=== PATIENT | female | born 1960 | race Caucasian/White ===

== ENCOUNTER 2021-06-09 14:27 | Emergency (ER) | payer BC, MEDICARE ==
[2021-06-09 14:59] VITALS: BP 120/76; PULSE 75; RESP 20; TEMP 99.3
[2021-06-09] MEDS ORDERED: LIDOCAINE 5% PATCH TOPICAL STA (17:17)
[2021-06-09] MEDS ORDERED: KETOROLAC 30 MG/ML 1 ML VIAL IM STA (17:17)
[2021-06-09] MEDS ORDERED: DIPH,PERTUS(ACELL)TETVAC-LF 0.5 ML VIAL IM ONE (17:17)
--- NOTE | 2021-06-09 17:35 | XR ---
EXAMINATION TYPE: XR ribs LT w pa chest xray DATE OF EXAM: 06/09/2021 COMPARISON: NONE HISTORY: Pain TECHNIQUE: 5 views FINDINGS: Heart and mediastinum appear normal. There is poor inspiration. There is some mild linear d ensity left lung base. I see no displaced fracture. There is no pneumothorax. There is no definite pl eural effusion. IMPRESSION: There is some pleural reaction at the left lung base. No rib fracture seen. Normal heart.
--- NOTE | 2021-06-09 17:51 | ED ---
General Adult HPI - General Chief complaint: Fall Stated complaint: Fall/Head Lac Time Seen by Provider: 06/09/21 16:57 Source: patient Mode of arrival: ambulatory Limitations: no limitations - History of Present Illness Initial comments: 61-year-old female patient presents to the emergency department today for evaluation after experiencing a fall. She is reporting left-sided rib pain. States it hurts to move or take a deep breath. Patient states the fall occurred approximately 2 hours ago. States she did hit her head on the cement. Denies loss of consciousness. Denies any current headache, blurred vision, double vision, nausea, or vomiting. Denies numbness, tingling, weakness to her extremities. She states she did scrape her left knee. States she's ambulating without difficulty does not believe it is broken. She denies any hemoptysis or cough. Does not feel short of breath. Denies taking any medication for pain. She is unsure when her last tetanus vaccine was given. - Related Data Previous Rx's Medication Instructions Recorded Ibuprofen [Motrin] 600 mg PO Q8HR PRN #30 tab 06/09/21 Lidocaine 5% Patch [Lidoderm] 1 patch TOPICAL DAILY #30 patch 06/09/21 Allergies Allergy/AdvReac Type Severity Reaction Status Date / Time vancomycin Allergy Rash/Hives Verified 06/09/21 14:55 Review of Systems ROS Statement: Those systems with pertinent positive or pertinent negative responses have been documented in the HPI. ROS Other: All systems not noted in ROS Statement are negative. Past Medical History Past Medical History: Cancer History of Any Multi-Drug Resistant Organisms: None Reported Past Surgical History: Breast Surgery Past Psychological History: No Psychological Hx Reported Smoking Status: Never smoker Past Alcohol Use History: Occasional Past Drug Use History: None Reported General Exam Limitations: no limitations General appearance: alert, in no apparent distress, other (This is a well- developed, well-nourished adult female patient in no acute distress.) Head exam: Present: other (Mild soft tissue swelling and ecchymosis to the left frontal region) Eye exam: Present: normal appearance, PERRL, EOMI, nystagmus. Absent: scleral icterus, conjunctival injection, periorbital swelling ENT exam: Present: normal exam, normal oropharynx, mucous membranes moist Neck exam: Present: normal inspection, full ROM, other (Nontender, no step-off, no deformity to firm midline palpation of the posterior cervical spine. Full range of motion without pain or limitation.). Absent: tenderness, meningismus, lymphadenopathy Respiratory exam: Present: normal lung sounds bilaterally, other (Left lateral chest wall tenderness). Absent: respiratory distress, wheezes, rales, rhonchi, stridor Cardiovascular Exam: Present: regular rate, normal rhythm, normal heart sounds. Absent: systolic murmur, diastolic murmur, rubs, gallop, clicks GI/Abdominal exam: Present: soft, normal bowel sounds. Absent: distended, tenderness, guarding, rebound, rigid Extremities exam: Present: full ROM, normal capillary refill, other (There is abrasion noted to the left anterior knee. Patient noted to the palmar surface of the left hand. Full range of motion is intact. Skin is otherwise pink, warm, dry. Cap refill less than 3 seconds. Pedal posttibial pulses are 2+. Radial pulses 2+.). Absent: tenderness, pedal edema, joint swelling, calf tenderness Neurological exam: Present: alert, oriented X3, CN II-XII intact Psychiatric exam: Present: normal affect, normal mood Skin exam: Present: warm, dry, intact, normal color. Absent: rash Course Vital Signs 06/09/21 14:56 Temperature 99.3 F Pulse Rate 75 Respiratory 20 Rate Blood Pressure 120/76 O2 Sat by Pulse 97 Oximetry Medical Decision Making - Medical Decision Making 61-year-old female patient presented for evaluation after a fall today. Physical examination did reveal abrasion to the left knee, ecchymosis soft tissue swelling to the left frontal region of her head. She also is reporting left-sided rib pain. No skin normalities to the chest. X-ray of the left ribs with PA chest was obtained and was negative for any acute fractures. She does have breast implants due to reconstruction after mastectomy, this was ultrasound and showed no evidence of fluid collection and the margins of the implant appeared intact. She will be discharged to follow[facility]up [facility] or her breast surgeon for further evaluation. I did inform her that ultrasound is limited in evaluating the implant so follow up is important. Also discussed possibility of rib contusion versus occult rib fracture. She is given Lidoderm patch and ibuprofen. Educated regarding coughing and deep breathing exercises to prevent pneumonia. She is instructed to follow-up with h er primary care physician for recheck in 1-2 days. Return parameters were discussed in detail. She verbalizes understanding and agrees with this plan. My attending is Dr. Martinez. - Radiology Data Radiology results: report reviewed, image reviewed Views of the left ribs are obtained. Report is reviewed in its entirety. Impression by Dr. Michel shows some pleural reaction at the left lung base. No rib fracture seen. Normal heart. Ultrasound of the left breast is obtained. Report was reviewed in its entirety. Impression by Dr. Michel shows left breast implant with margins that appear intact. No pathologic fluid collection identified. No solid or cystic breast mass identified. Disposition Clinical Impression: Rib pain on left side Disposition: HOME SELF-CARE Condition: Good Instructions (If sedation given, give patient instructions): Rib Contusion (ED) Additional Instructions: Take medications as directed, use numbing patches for the pain. Perform coughing and deep breathing exercises to prevent pneumonia. Follow-up with [facility] for further evaluation of your breast. With your primary care physician for recheck in 1-2 days. Return to the emergency department for any new, worsening, or concerning symptoms. Prescriptions: Lidocaine 5% Patch [Lidoderm] 1 patch TOPICAL DAILY #30 patch Ibuprofen [Motrin] 600 mg PO Q8HR PRN #30 tab PRN Reason: Pain Is patient prescribed a controlled substance at d/c from ED?: No Referrals: None,Stated [Primary Care Provider] - 1-2 days Time of Disposition: 20:18
--- NOTE | 2021-06-09 20:13 | USB ---
EXAMINATION TYPE: US breast complete LT DATE OF EXAM: 06/09/2021 COMPARISON: NONE CLINICAL HISTORY: fall today, left breast pain. Patient fell today. Hx breast cancer, double mastecto my, chemo, radiation, bilateral silicone implants per patient, hysterectomy. Patient is currently on hormone therapy. Patient's aunt and cousin had hx of breast cancer. Limited exam, patient needs follow up with [facility]. Hx mastectomy and implant. Possible minimal internal echoes seen within implant. Hypoechoic area with hyperechoic center seen within axilla: 1.4 x 0.7 x 0.9 cm. IMPRESSION: There is left breast implant with margins that appear intact. No pathologic fluid collect ion identified. No solid or cystic breast mass identified. BI-RADS category negative.
== END 2021-06-09 20:29 | disposition home or self-care (01) ==
LOC: EC 14:27
DX: R07.81 Pleurodynia (principal); Z88.1 Allergy status to other antibiotic agents; Z23 Encounter for immunization
CPT/HCPCS: 99284 ×2; 90471 ×2; 96372 ×2; 71101; 76641; 90715; J1885